=== PATIENT | male | born 1955 | race Caucasian/White ===

== ENCOUNTER → 2016-05-24 | Outpatient (CLI) | payer BC ==
[~2016-05-24] MED LIST: GADOBUTROL 10mMol/10ml INJECTION IV ONE; SALINE FLUSH 10ml SYRINGE ONE
--- NOTE | 2016-05-25 08:54 | DI ---
Indication: ITS.REASON: NONTRAUMATIC SUBDURAL HEMORRHAGE PROCEDURE: MRI BRAIN W/WO CONTRAST: Encounter: Initial Comparisons: None Technique: Multiplanar, multisequence, MR imaging of the head with and without contrast was acquired. Contrast: 7 mL of Gadavist FINDINGS: Motion artifact limits the exam. Encephalomalacia in the right anterior inferior frontal lobe and right inferior lateral temporal lobe. The ventricles are of normal size, shape, and contour for the patient's age. There are small nonspecific punctate areas of T2-weighted and T2 FLAIR weighted signal abnormality in the deep frontoparietal white matter that most likely represent small vessel ischemic disease. This is of a degree that is considered to be normal for the patient's age. The brain stem, cerebellum, and cerebral hemispheres otherwise have a normal morphologic appearance as well as MR signal intensity on all pulse sequences. Following intravenous administration of contrast, no areas of abnormal enhancement are evident. There are no areas of restricted diffusion to suggest an acute infarct. There is no evidence of an intracranial mass lesion, intracranial hemorrhage, or hydrocephalus. The visualized portions of the orbits, calvarium, paranasal sinuses, and skull base demonstrate no acute abnormality. Small mastoid effusions. IMPRESSION: Areas of encephalomalacia in the right frontal and temporal lobes could be due to old trauma, prior infarct or prior surgery. Recommend correlation with patient's history. No recent appearing subdural hemorrhage identified. No mass effect or midline shift. .
== END ==
LOC: IMA 17:50
PROVIDERS: ATTEND Family Medicine
DX: G93.89 Other specified disorders of brain (principal); Z91.81 History of falling; I62.00 Nontraumatic subdural hemorrhage, unspecified
CPT/HCPCS: 70553; A9585